=== PATIENT | female | born 1945 | race Caucasian/White ===

== ENCOUNTER 2019-04-20 13:05 | Outpatient (CLI) | payer MEDICARE ==
[~2019-04-20 13:05] MED LIST: ACET325T14 PO; ALPR0.257 PO; AMLO-150 PO; ATOR10TA PO; CALC200T3 PO; CETI10TA26 PO; CHOL2000 PO; CLIN300C8 PO; CYAN250T PO; DOXY100T PO; ESTR0.5T PO; LEVO100C2 PO; LISI5TAB7 PO; METH4TAB2 PO; MULT1TAB60 PO; OMEP40CA42 PO; SERT50TA28 PO; SODI325T PO; TRAM50TA2 PO; VITA400C43 PO
[2019-04-20] MEDS ORDERED: ACET-1600 PO (14:06)
[2019-04-20 14:13] LABS: BASOPHILS # (AUTO) 0.05 x10^3/uL (0-0.1); BASOPHILS % (AUTO) 1 % (0-1); EOSINOPHILS # (AUTO) 0.22 x10^3/uL (0-0.4); EOSINOPHILS % (AUTO) 3 % (1-7); LYMPHOCYTES # (AUTO) 2.11 x10^3/uL (1-3.4); LYMPHOCYTES % (AUTO) 28 % (22-44); MD NO; MEAN CORPUSCULAR HEMOGLOBIN 27.2 pg (27.0-34.8); MEAN CORPUSCULAR HGB CONC 32.4 g/dL (32.4-35.8); MEAN CORPUSCULAR VOLUME 84.1 fL (80-100); MEAN PLATELET VOLUME 8.8 fL (7.4-10.4); MONOCYTES # (AUTO) 0.67 x10^3/uL (0.2-0.8); MONOCYTES % (AUTO) 9 % (2-9); NEUTROPHILS # (AUTO) 4.57 x10^3/uL (1.8-6.8); NEUTROPHILS % (AUTO) 60 % (42-75); PLATELET COUNT 336 x10^3/uL (130-400); RED BLOOD COUNT 4.37 x10^6/uL (3.82-5.3); RED CELL DISTRIBUTION WIDTH 17.1 % (9.6-15.2)
[2019-04-20 14:26] LABS: ALANINE AMINOTRANSFERASE 19 U/L (12-78); ALBUMIN 3.6 g/dL (3.4-5.0); ANION GAP 8 mmol/L (5-15); CALCIUM 8.9 mg/dL (8.5-10.1); CHLORIDE 109 mmol/L (98-107); CREATININE 1.22 mg/dL (0.55-1.02)
[2019-04-20 14:28] LABS: ALKALINE PHOSPHATASE 138 U/L (45-117); BILIRUBIN,TOTAL 0.3 mg/dL (0.2-1.0); TOTAL PROTEIN 7.5 g/dL (6.4-8.2)
[2019-04-20 14:40] LABS: CULTURE INDICATED? YES; MICROSCOPIC INDICATED
== END 2019-04-20 23:59 | disposition home or self-care (01) ==
LOC: STAR 13:05
PROVIDERS: ATTEND Orthopaedic Surgery
DX: Z01.818 Encounter for other preprocedural examination (principal); M16.11 Unilateral primary osteoarthritis, right hip; M25.551 Pain in right hip
CPT/HCPCS: 36415; 80053; 81001; 85025; 87081; 87086; 93005

== ENCOUNTER 2019-05-01 07:35 | Observation (INO) | payer MEDICARE ==
[~2019-05-01] VITALS: Ht 156.2 cm; Wt 64.1 kg
[~2019-05-01 07:35] MED LIST changes: +ACET-1600 PO; +EPINEPHRINE 1 MG/ML, 1ML ONE; +KETOROLAC 60 MG/2 ML ONE; +ROPIvacaine/PF 0.2%, 20 ML ONE; +SODIUM CHLORIDE 0.9% 50 ML ONE; +TRANEXAMIC ACID 100 MG/ML, 10ML ONE
[2019-05-01] MEDS ORDERED: GABAPENTIN 300 MG CAPSULE PO STA (08:05)
[2019-05-01] MEDS ORDERED: ACETAMINOPHEN 500 MG TABLET PO STA (08:05)
[2019-05-01] MEDS ORDERED: SODIUM CHLORIDE 0.9% 1,000 ML IV SCH (08:06)
[2019-05-01] MEDS ORDERED: NITR100C56 PO (08:11)
[2019-05-01] MEDS ORDERED: MIDAZOLAM 1 MG/ML, 2ML ONE (09:02)
[2019-05-01] MEDS ORDERED: FENTANYL PF 250 MCG/5ML ONE (09:02)
[2019-05-01] MEDS ORDERED: PROPOFOL 10 MG/ML, 20ML ONE (09:04)
[2019-05-01] MEDS ORDERED: ROCURONIUM 10MG/ML,5ML ONE ×2 (09:04→09:20)
[2019-05-01] MEDS ORDERED: LIDOCAINE-MPF 2% ,5ML ONE (09:04)
[2019-05-01] MEDS ORDERED: DEXAMETHASONE 4 MG/ML, 1ML ONE (09:04)
[2019-05-01] MEDS ORDERED: SUCCINYLCHOLINE 20 MG/ML, 10ML ONE (09:04)
[2019-05-01] MEDS ORDERED: ONDANSETRON 2MG/ML, 2ML ONE (09:20)
[2019-05-01] MEDS ORDERED: CEFAZOLIN 1,000 MG ONE (09:20)
[2019-05-01] MEDS ORDERED: HALOPERIDOL 5 MG/ML IV PRN (10:00)
[2019-05-01] MEDS ORDERED: hydrALAzine 20 MG/ML, 1ML IV PRN (10:00)
[2019-05-01] MEDS ORDERED: PROMETHAZINE 12.5 MG SUPP PR PRN ×2 (10:00→11:00)
[2019-05-01] MEDS ORDERED: DIAZEPAM 5 MG/ML, 2ML IVPush PRN (10:00)
[2019-05-01] MEDS ORDERED: LABETALOL 5MG/ML, 20ML IV PRN (10:00)
[2019-05-01] MEDS ORDERED: PROMETHAZINE 25 MG/ML, 1ML IV PRN (10:00)
[2019-05-01] MEDS ORDERED: MEPERIDINE/PF 25MG/ML,1ML IVPush PRN (10:00)
[2019-05-01] MEDS ORDERED: ALBUTEROL SULFATE 2.5 MG/3 ML NPPB PRN (10:00)
[2019-05-01] MEDS ORDERED: EPHEDRINE 50 MG/ML, 1ML IVPush PRN (10:00)
[2019-05-01] MEDS ORDERED: ONDANSETRON 2MG/ML, 2ML IV PRN (10:00)
[2019-05-01] MEDS ORDERED: MIDAZOLAM 1 MG/ML, 2ML IV PRN (10:00)
[2019-05-01] MEDS ORDERED: ONDANSETRON ODT 8 MG PO PRN (10:00)
[2019-05-01] MEDS ORDERED: SENNA/DOCUSATE TABLET PO PRN (11:00)
[2019-05-01] MEDS ORDERED: DEXAMETHASONE 4 MG/ML, 1ML IVPush SCH (11:00)
[2019-05-01] MEDS ORDERED: BISACODYL 10 MG SUPP PR PRN (11:00)
[2019-05-01] MEDS ORDERED: ALUMINUM/MAG/SIMETHICONE 30 ML UDC PO PRN (11:00)
[2019-05-01] MEDS ORDERED: ONDANSETRON 4 MG TABLET PO PRN (11:00)
[2019-05-01] MEDS ORDERED: MAGNESIUM HYDROXIDE 8%, 30ML UDC PO PRN (11:00)
[2019-05-01] MEDS ORDERED: ZOLPIDEM 5MG TABLET PO PRN (11:00)
[2019-05-01] MEDS ORDERED: DIPHENHYDRAMINE 25 MG CAPSULE PO PRN (11:00)
[2019-05-01] MEDS ORDERED: ONDANSETRON 2MG/ML, 2ML IVPush PRN (11:00)
[2019-05-01] MEDS ORDERED: HYDROmorphone 1 MG/ML, 1ML INJ IVPush PRN (11:00)
[2019-05-01] MEDS ORDERED: PSYLLIUM PACKET PO PRN (11:00)
[2019-05-01] MEDS ORDERED: DIAZEPAM 5 MG TABLET PO PRN (11:00)
[2019-05-01] MEDS: ACETAMINOPHEN 500 MG TABLET PO SCH ×3 (11:00→23:46)
[2019-05-01] MEDS: KETOROLAC 30 MG/1 ML IV SCH ×2 (11:00→18:32)
[2019-05-01] MEDS ORDERED: OXYcodone 5 MG/5 ML ORAL.SOL UDC ONE ×2 (11:10→11:38)
[2019-05-01] MEDS ORDERED: FENTANYL PF 100 MCG/2ML ONE (11:10)
[2019-05-01] MEDS: FENTANYL PF 100 MCG/2ML IV PRN ×2 (11:15→11:25)
[2019-05-01] MEDS: OXYcodone 5 MG/5 ML ORAL.SOL UDC PO PRN ×2 (11:17→11:39)
[2019-05-01] MEDS ORDERED: HYDROmorphone 1 MG/ML, 1ML INJ ONE (11:27)
[2019-05-01] MEDS ORDERED: DIAZEPAM 5 MG/ML, 2ML ONE (11:27)
[2019-05-01] MEDS: HYDROmorphone 2 MG/ML, 1ML IVPush PRN ×2 (11:29→11:41)
[2019-05-01] MEDS ORDERED: TRANEXAMIC ACID 1,000 MG in SODIUM CHLORIDE 0.9% 100 ML IVPB ONE (11:30)
[2019-05-01 12:25] VITALS: BP 106/55
[2019-05-01] MEDS: CALCIUM/VITAMIN D3 250-125 TABLET PO SCH ×2 (13:01→17:41)
[2019-05-01] MEDS: SODIUM BICARBONATE 650 MG TABLET PO SCH ×2 (13:01→17:41)
[2019-05-01] MEDS: D5%-0.45% NACL 1,000 ML IV SCH (13:08)
[2019-05-01] MEDS: CEFAZOLIN PMX 2GM/50ML 50 ML IVPB SCH (17:41)
[2019-05-01] MEDS: FERROUS SULFATE 325 MG TABLET PO SCH (17:41)
[2019-05-01] MEDS: ASPIRIN 81 MG TABLET EC PO SCH ×2 (17:41→20:32)
[2019-05-01 18:34] VITALS: BP 112/69
[2019-05-01 18:53] VITALS: BP 103/66
[2019-05-01] MEDS: OXYcodone IR 5MG TABLET PO PRN (20:32)
[2019-05-01] MEDS: DOCUSATE 100 MG CAPSULE PO SCH (20:32)
[2019-05-01] MEDS ORDERED: LEVOTHYROXINE 100 MCG TABLET PO SCH (21:00)
[2019-05-01] MEDS ORDERED: ATORVASTATIN 10 MG TABLET PO SCH (21:00)
[2019-05-01 23:52] VITALS: BP 103/58
[2019-05-02] MEDS: D5%-0.45% NACL 1,000 ML IV SCH (00:15)
[2019-05-02] MEDS: CEFAZOLIN PMX 2GM/50ML 50 ML IVPB SCH (01:44)
[2019-05-02] MEDS: KETOROLAC 30 MG/1 ML IV SCH (04:10)
[2019-05-02 04:20] VITALS: BP 131/77
[2019-05-02] MEDS: ACETAMINOPHEN 500 MG TABLET PO SCH ×2 (05:44→11:21)
[2019-05-02] MEDS ORDERED: LEVOTHYROXINE 100 MCG TABLET PO SCH (06:00)
[2019-05-02] MEDS ORDERED: DEXAMETHASONE 4 MG/ML, 1ML IVPush SCH (06:00)
[2019-05-02] MEDS: OXYcodone IR 5MG TABLET PO PRN (06:03)
[2019-05-02 07:25] VITALS: BP 129/68
[2019-05-02] MEDS: ASPIRIN 81 MG TABLET EC PO SCH (07:51)
[2019-05-02] MEDS: CALCIUM/VITAMIN D3 250-125 TABLET PO SCH ×2 (07:52→11:21)
[2019-05-02] MEDS: FERROUS SULFATE 325 MG TABLET PO SCH (07:52)
[2019-05-02] MEDS: SODIUM BICARBONATE 650 MG TABLET PO SCH ×2 (07:52→13:28)
[2019-05-02] MEDS: DOCUSATE 100 MG CAPSULE PO SCH (07:53)
[2019-05-02] MEDS ORDERED: ASCORBIC ACID 500 MG TABLET PO SCH (09:00)
[2019-05-02] MEDS ORDERED: MULTIVITAMINS/MINERALS TABLET PO SCH (09:00)
[2019-05-02] MEDS ORDERED: NITROFURANTOIN (MACROBID) 100 MG CAPSULE PO SCH (09:00)
[2019-05-02] MEDS ORDERED: OMEPRAZOLE 20 MG CAPSULE.DR PO SCH (09:00)
[2019-05-02] MEDS ORDERED: SERTRALINE 50MG TABLET PO SCH (09:00)
[2019-05-02] MEDS ORDERED: AMLODIPINE 5 MG TABLET PO SCH (09:00)
[2019-05-02] MEDS ORDERED: LISINOPRIL 5 MG TABLET PO SCH (09:00)
[2019-05-02 13:12] VITALS: BP 107/60
== END 2019-05-02 13:59 | disposition home or self-care (01) ==
LOC: INTOOBSV 07:35 → ORIP 07:35 → 4NE 12:19 → DCLOUNGE 05-02 13:47
PROVIDERS: ADMIT Orthopaedic Surgery; ATTEND Orthopaedic Surgery
DX: M16.11 Unilateral primary osteoarthritis, right hip (principal); I12.9 Hypertensive chronic kidney disease with stage 1 through stage 4 chronic kidney disease, or unspecified chronic kidney disease; N18.3 Chronic kidney disease, stage 3 (moderate); E78.5 Hyperlipidemia, unspecified; E03.9 Hypothyroidism, unspecified; F41.9 Anxiety disorder, unspecified; K21.9 Gastro-esophageal reflux disease without esophagitis; D63.1 Anemia in chronic kidney disease; Z79.899 Other long term (current) drug therapy; Z79.2 Long term (current) use of antibiotics
CPT/HCPCS: 27130; 36415; 72170; 82550; 85014; 85018; 86850; 86900; 96365; 96366; 96375; 96376; 97161; 97165; C1713; C1776; G0378; J0171; J0330; J0690; J1100; J1170; J1885; J2250; J2405; J2704; J2795; J3010; J3490; J7030